=== PATIENT | female | born 1965 | race Caucasian/White ===

== ENCOUNTER 2022-05-02 11:25 | Emergency (ER) | payer OTHER ==
[2022-05-02] MEDS ORDERED: BABY ASPIRIN 81 MG CHEW PO ONE (11:43)
--- NOTE | 2022-05-02 12:09 | XRAY ---
Indication: Chest heaviness. Comparison: None. Portable chest demonstrates normal heart and lungs. Bony thorax intact with minimal degenerative changes.
[2022-05-02 12:16] LABS: Absolute Neutrophil Ct (ANC) 4.35 x10^3/uL (1.4-6.9); Basophil (Absolute #) 0.02 x10^3/uL (0-0.4); Eosinophil % 8.8 % (0.00-5.0); Eosinophil (Absolute #) 0.66 x10^3/uL (0-0.5); Hematocrit 37.3 % (35-47); Hemoglobin 12.3 g/dL (12.0-16.0); Lymphocyte (Absolute #) 1.83 x10^3/uL (1.0-4.6); Lymphocytes % 24.4 % (24.0-44.0); Mean Cell Volume 86.7 fL (78-100); Mean Corpuscular Hemoglobin 28.6 pg (26-32); Mean Platelet Volume 9.9 fL (7.5-11.0); Monocyte (Absolute #) 0.61 x10^3/uL (0.0-1.3); Monocytes % 8.1 % (0.0-12.0); Neutrophil % 58.1 % (36.0-66.0); Platelet Count 328 x10^3/uL (150-450); White Blood Count 7.5 x10^3/uL (4.0-10.5)
[2022-05-02 12:37] LABS: ALBUMIN 4.5 g/dL (3.5-5.0); ALKALINE PHOSPHATASE 76 U/L (38-126); ANION GAP 13.1 MEQ/L (5-15); BLOOD UREA NITROGEN 18 mg/dL (7-17); CHLORIDE 105 mmol/L (98-107); Calcium 9.5 mg/dL (8.4-10.2); Carbon Dioxide 23 mmol/L (22-30); EST GLOMERULAR FILTRATION RATE > 60.0 ML/MIN; Glucose 93 mg/dL (74-106); NT PRO BNP 47.1 pg/mL (0-900); SGOT/AST 26 U/L (14-36); SGPT/ALT 21 U/L (0-35); SODIUM 138 mmol/L (137-145); Total Protein 7.7 g/dL (6.3-8.2)
[2022-05-02 12:39] LABS: MAGNESIUM 1.9 mg/dL (1.6-2.3)
--- NOTE | 2022-05-02 15:24 | ERPHSYRPT ---
- History of Present Illness Time Seen by Provider: 05/02/22 11:42 Historian: patient Exam Limitations: no limitations Patient Subjective Stated Complaint: pt states "I have this chest discomfort. I felt like I was going to pass out. I have been throwing up just randomly." Triage Nursing Assessment: pt ambulated into the er; pt is axo x4; anxious; tearful; c/o chest distcomfort; pt denies pain; clear apical tone; clear lung sounds in all lobes; strong fadumo radial pulse; strong pedal pulse; no edema present; c/o vomiting; denies nausea, diarrhea; hypertensive Physician History: 56 years old female with history of hypertension, hyperlipidemia, intermittent palpitations, chest pain with feeling of dizziness/lightheadedness woke up this morning, was fixing her breakfast and felt nauseated, vomited times once and af terstarted to feel some chest discomfort continuous mild to moderate until she arrived in the ER and started to improve. This started around 7:30 AM today. Patient checked her blood pressure which was in 150s systolic and her heart beat was irregular. Patient currently in normal sinus rhythm, feeling better. She also reports earlier she was feeling as if she was going to pass out but she did not. Denies any palpitations currently. No difficulty breathing. Reports having similar symptoms multiple times in the past and has been evaluated by Dr. Hutchison and is scheduled for CTA coronaries. Timing/Duration: today, improved Activities at Onset: rest Quality: aching, dullness Location: central Chest Pain Radiation: no radiation Severity of Pain-Max: moderate Severity of Pain-Current: none Modifying Factors: Improves With: nothing Associated Symptoms: nausea, vomiting, palpitations Prior Chest Pain/Cardiac Workup: echocardiography Nitro Today/Relief: no nitro taken today Aspirin Treatment Today: 81 mg x 2 Allergies/Adverse Reactions: lisinopril Allergy (Verified 05/02/22 11:27) Anaphylactic Reaction raloxifene [From Evista] Allergy (Verified 05/02/22 11:28) Home Medications: Ascorbic Acid [Vitamin C] 1,000 mg PO DAILY 05/02/22 [History] Aspirin [Ecotrin] 81 mg PO DAILY 05/02/22 [History] Cholecalciferol (Vitamin D3) [D-2000] 2,000 unit PO DAILY 05/02/22 [History] Estradiol [Estrace] 1 mg PO DAILY 05/02/22 [History] Estrogens,Esterified [Menest] 1.25 mg PO DAILY 05/02/22 [History] Losartan Potassium [Cozaar] 100 mg PO DAILY 05/02/22 [History] Mecobalamin [B12 Active] 1,000 mcg PO DAILY 05/02/22 [History] Metoprolol Succinate [Toprol Xl] 25 mg PO BID 05/02/22 [History] Potassium Chloride [Klor-Con M20] 20 meq PO DAILY 05/02/22 [History] Spironolactone 25 mg [Aldactone 25 MG] 25 mg PO DAILY 05/02/22 [History] Vit C/Quercetin/Bioflav,Mclean [Quercetin Complex Capsule] 1 each PO DAILY 05/02/22 [History] Zinc Gluconate [Zinc] 22.5 mg PO DAILY 05/02/22 [History] Hx Tetanus, Diphtheria Vaccination/Date Given: Yes Hx Influenza Vaccination/Date Given: No Hx Pneumococcal Vaccination/Date Given: No Immunizations Up to Date: Yes Travel Risk - International Travel Have you traveled outside of the country in past 3 weeks: No - Coronavirus Screening Are you exhibiting any of the following symptoms?: No Close contact with a COVID-19 positive Pt in past 14-21 Days: No - Vaccine Status Have you recieved a Covid-19 vaccination: No - Review of Systems Constitutional: No Symptoms Eyes: No Symptoms Ears, Nose, & Throat: No Symptoms Respiratory: No Symptoms Cardiac: Chest Pain, Palpitations Abdominal/Gastrointestinal: Nausea, Vomiting Genitourinary Symptoms: No Symptoms Musculoskeletal: No Symptoms Skin: No Symptoms Neurological: No Symptoms Psychological: No Symptoms Endocrine: No Symptoms Hematologic/Lymphatic: No Symptoms Immunological/Allergic: No Symptoms - Past Medical History Pertinent Past Medical History: Yes Neurological History: No Pertinent History ENT History: No Pertinent History Cardiac History: Hypertension Respiratory History: No Pertinent History Endocrine Medical History: No Pertinent History Musculoskeletal History: Osteoporosis GI Medical History: No Pertinent History History: Renal Disease, Other Psycho-Social History: No Pertinent History Female Reproductive Disorders: No Pertinent History Other Medical History: liver disease - Past Surgical History Past Surgical History: Yes Female Surgical History: Hysterectomy, Other Other Surgical History: ovarian surgeries - Social History Smoking Status: Never smoker Exposure to second hand smoke: No Drug Use: none Patient Lives Alone: No - Nursing Vital Signs Nursing Vital Signs: Initial Vital Signs Temperature 98.5 F 05/02/22 11:32 Pulse Rate 80 05/02/22 11:32 Respiratory Rate 20 05/02/22 11:32 Blood Pressure 155/84 05/02/22 11:32 O2 Sat by Pulse Oximetry 100 05/02/22 11:32 Pain Scale Pain Intensity 0 - Physical Exam General Appearance: no apparent distress, alert Eye Exam: PERRL/EOMI Ears, Nose, Throat Exam: normal ENT inspection Neck Exam: normal inspection, non-tender, supple, full range of motion Respiratory Exam: normal breath sounds, lungs clear Cardiovascular Exam: regular rate/rhythm, normal heart sounds Gastrointestinal/Abdomen Exam: soft, normal bowel sounds, No tenderness Back Exam: normal inspection, normal range of motion Extremity Exam: normal inspection, normal range of motion Neurologic Exam: alert, oriented x 3, cooperative, resizer operator II-XII nml as tested Skin Exam: normal color SpO2 Interpretation: normal SpO2: 99 O2 Delivery: Room Air - Course EKG Interpreted by Me: RATE ([id number]), Sinus Rhythm, NORMAL AXIS, NORMAL INTERVALS, NORMAL QRS Ordered Tests: Active Orders 24 hr Category Date Time Status Dialysis Biomed Technician STAT Care 05/02/22 11:44 Active EKG-ER Only STAT Care 05/02/22 11:43 Active IV Insertion STAT Care 05/02/22 11:43 Active CHEST 1 VIEW (PORTABLE) Stat Exams 05/02/22 11:44 Completed CBC W DIFF Stat Lab 05/02/22 11:36 Completed CMP Stat Lab 05/02/22 11:36 Completed D-DIMER QUANTITATIVE Stat Lab 05/02/22 11:36 Completed LIPASE Stat Lab 05/02/22 11:36 Completed MAG [MAGNESIUM] Stat Lab 05/02/22 11:36 Completed NT PRO BNP Stat Lab 05/02/22 11:36 Completed TROPONIN Q4H Lab 05/02/22 11:36 Completed TROPONIN Q4H Lab 05/02/22 14:39 Completed TROPONIN Q4H Lab 05/02/22 19:45 Ordered TSH [TSH, 3RD Generation] Stat Lab 05/02/22 11:36 Completed Medication Summary Discontinued Medications Generic Name Dose Route Start Last Admin Trade Name Freq PRN Reason Stop Dose Admin Aspirin 324 mg 05/02/22 11:43 05/02/22 11:53 Aspirin 81 Mg Tab.Chew PO 05/02/22 11:44 162 mg STAT ONE Administration Lab/Rad Data: Laboratory Result Diagrams 05/02/22 11:36 05/02/22 11:36 Laboratory Results 05/02/22 05/02/22 05/02/22 Range/Units 14:39 11:36 11:36 WBC (4.0-10.5) x10^3/uL RBC (4.1-5.4) x10^6/uL Hgb (12.0-16.0) g/dL Hct (35-47) % MCV (78-100) fL MCH (26-32) pg MCHC (32-36) g/dL RDW (11.5-14.0) % Plt Count (150-450) x10^3/uL MPV (7.5-11.0) fL Gran % (36.0-66.0) % Immature Gran % (Auto) (0.00-0.4) % Nucleat RBC Rel Count (0.00-0.1) % Eos # (Auto) (0-0.5) x10^3/uL Immature Gran # (Auto) (0.00-0.03) x10^3u/L Absolute Lymphs (auto) (1.0-4.6) x10^3/uL Absolute Monos (auto) (0.0-1.3) x10^3/uL Absolute Nucleated RBC (0.00-0.01) x10^3u/L Lymphocytes % (24.0-44.0) % Monocytes % (0.0-12.0) % Eosinophils % (0.00-5.0) % Basophils % (0.0-0.4) % Absolute Granulocytes (1.4-6.9) x10^3/uL Basophils # (0-0.4) x10^3/uL D-Dimer 0.19 (0.0-0.50) mg/L Sodium (137-145) mmol/L Potassium (3.5-5.1) mmol/L Chloride (98-107) mmol/L Carbon Dioxide (22-30) mmol/L Anion Gap (5-15) MEQ/L BUN (7-17) mg/dL Creatinine (0.52-1.04) mg/dL Estimated GFR ML/MIN Glucose (74-106) mg/dL Calcium (8.4-10.2) mg/dL Magnesium 1.9 (1.6-2.3) mg/dL Total Bilirubin (0.2-1.3) mg/dL AST (14-36) U/L ALT (0-35) U/L Alkaline Phosphatase (38-126) U/L Troponin I < 0.012 (0.000-0.034) ng/mL NT-Pro-B Natriuret Pep (0-900) pg/mL Serum Total Protein (6.3-8.2) g/dL Albumin (3.5-5.0) g/dL Lipase 119 (23-300) U/L TSH 3rd Generation (0.47-4.68) mIU/L 05/02/22 05/02/22 05/02/22 Range/Units 11:36 11:36 11:36 WBC (4.0-10.5) x10^3/uL RBC (4.1-5.4) x10^6/uL Hgb (12.0-16.0) g/dL Hct (35-47) % MCV (78-100) fL MCH (26-32) pg MCHC (32-36) g/dL RDW (11.5-14.0) % Plt Count (150-450) x10^3/uL MPV (7.5-11.0) fL Gran % (36.0-66.0) % Immature Gran % (Auto) (0.00-0.4) % Nucleat RBC Rel Count (0.00-0.1) % Eos # (Auto) (0-0.5) x10^3/uL Immature Gran # (Auto) (0.00-0.03) x10^3u/L Absolute Lymphs (auto) (1.0-4.6) x10^3/uL Absolute Monos (auto) (0.0-1.3) x10^3/uL Absolute Nucleated RBC (0.00-0.01) x10^3u/L Lymphocytes % (24.0-44.0) % Monocytes % (0.0-12.0) % Eosinophils % (0.00-5.0) % Basophils % (0.0-0.4) % Absolute Granulocytes (1.4-6.9) x10^3/uL Basophils # (0-0.4) x10^3/uL D-Dimer (0.0-0.50) mg/L Sodium 138 (137-145) mmol/L Potassium 4.0 (3.5-5.1) mmol/L Chloride 105 (98-107) mmol/L Carbon Dioxide 23 (22-30) mmol/L Anion Gap 13.1 (5-15) MEQ/L BUN 18 H (7-17) mg/dL Creatinine 0.70 (0.52-1.04) mg/dL Estimated GFR > 60.0 ML/MIN Glucose 93 (74-106) mg/dL Calcium 9.5 (8.4-10.2) mg/dL Magnesium (1.6-2.3) mg/dL Total Bilirubin 0.50 (0.2-1.3) mg/dL AST 26 (14-36) U/L ALT 21 (0-35) U/L Alkaline Phosphatase 76 (38-126) U/L Troponin I < 0.012 (0.000-0.034) ng/mL NT-Pro-B Natriuret Pep 47.1 (0-900) pg/mL Serum Total Protein 7.7 (6.3-8.2) g/dL Albumin 4.5 (3.5-5.0) g/dL Lipase (23-300) U/L TSH 3rd Generation 0.912 (0.47-4.68) mIU/L 05/02/ Range/Units 11:36 WBC 7.5 (4.0-10.5) x10^3/uL RBC 4.30 (4.1-5.4) x10^6/uL Hgb 12.3 (12.0-16.0) g/dL Hct 37.3 (35-47) % MCV 86.7 (78-100) fL MCH 28.6 (26-32) pg MCHC 33.0 (32-36) g/dL RDW 13.0 (11.5-14.0) % Plt Count 328 (150-450) x10^3/uL MPV 9.9 (7.5-11.0) fL Gran % 58.1 (36.0-66.0) % Immature Gran % (Auto) 0.3 (0.00-0.4) % Nucleat RBC Rel Count 0.0 (0.00-0.1) % Eos # (Auto) 0.66 H (0-0.5) x10^3/uL Immature Gran # (Auto) 0.02 (0.00-0.03) x10^3u/L Absolute Lymphs (auto) 1.83 (1.0-4.6) x10^3/uL Absolute Monos (auto) 0.61 (0.0-1.3) x10^3/uL Absolute Nucleated RBC 0.00 (0.00-0.01) x10^3u/L Lymphocytes % 24.4 (24.0-44.0) % Monocytes % 8.1 (0.0-12.0) % Eosinophils % 8.8 H (0.00-5.0) % Basophils % 0.3 (0.0-0.4) % Absolute Granulocytes 4.35 (1.4-6.9) x10^3/uL Basophils # 0.02 (0-0.4) x10^3/uL D-Dimer (0.0-0.50) mg/L Sodium (137-145) mmol/L Potassium (3.5-5.1) mmol/L Chloride (98-107) mmol/L Carbon Dioxide (22-30) mmol/L Anion Gap (5-15) MEQ/L BUN (7-17) mg/dL Creatinine (0.52-1.04) mg/dL Estimated GFR ML/MIN Glucose (74-106) mg/dL Calcium (8.4-10.2) mg/dL Magnesium (1.6-2.3) mg/dL Total Bilirubin (0.2-1.3) mg/dL AST (14-36) U/L ALT (0-35) U/L Alkaline Phosphatase (38-126) U/L Troponin I (0.000-0.034) ng/mL NT-Pro-B Natriuret Pep (0-900) pg/mL Serum Total Protein (6.3-8.2) g/dL Albumin (3.5-5.0) g/dL Lipase (23-300) U/L TSH 3rd Generation (0.47-4.68) mIU/L - Progress Progress: improved Air Movement: good Progress Note: 05/02/22 15:23 Patient chest pain is improved on presentation. EKG showed normal sinus rhythm with no ST changes suggesting ischemia and no arrhythmias. Negative troponins x2. Chest x-ray negative. Negative D-dimers. Negative orthostatics. Patient remained asymptomatic. Patient chest pain symptoms are not very typical of cardiac etiology, low heart score, do not think patient needs to be admitted and is stable for discharge with outpatient primary care and cardiology follow-up. Discussed signs symptoms of worsening needing return to ER which she seems understanding. Blood Culture(s) Obtained: No Antibiotics given: No Counseled pt/family regarding: lab results, diagnosis, need for follow-up, rad results - Departure Departure Disposition: Home Clinical Impression: Atypical chest pain Condition: Stable Critical Care Time: No Referrals: COLBY SHANKAR [facility]PER[facility] [Primary Care Provider] - Follow up/PCP as directed (Wound exteriors for reevaluation) DOMINICK MCCOY [ACTIVE STAFF] - Follow up/PCP as directed (1-2 days for r eevaluation) Instructions: Angina (DC), Chest Pain (DC) Additional Instructions: Follow-up with primary care and cardiology for reevaluation. Return to ER if again having chest pain palpitations or shortness of breath.
[2022-05-02 15:28] VITALS: BP 125/74; PULSE 67
[2022-05-02 15:30] VITALS: O2SAT 99
== END 2022-05-02 15:32 | disposition home or self-care (01) ==
LOC: ED 11:25
DX: R07.89 Other chest pain (principal); R11.2 Nausea with vomiting, unspecified; R00.2 Palpitations; I10 Essential (primary) hypertension; E78.5 Hyperlipidemia, unspecified; Z79.899 Other long term (current) drug therapy; Z28.310 Unvaccinated for COVID-19
CPT/HCPCS: 36415; 71045; 80053; 83690; 83735; 83880; 84443; 84484; 85025; 85379; 93005; 93041; 99284; A9270-GY